=== PATIENT | male | born 1990 | race Caucasian/White ===

== ENCOUNTER 2021-12-04 06:39 | Emergency (ER) | payer OTHER ==
[~2021-12-04] VITALS: Ht 182.9 cm; Wt 104.5 kg
[2021-12-04 06:47] VITALS: BP 128/71
== END 2021-12-04 07:52 | disposition home or self-care (01) ==
LOC: EMS 06:41
DX: U07.1 COVID-19 (principal)
CPT/HCPCS: 99282; Z7502